=== PATIENT | female | born 1980 | race Caucasian/White ===

== ENCOUNTER 2017-12-28 21:30 | Emergency (ER) | payer BC ==
[2017-12-28 21:39] VITALS: BP 150/89; PULSE 73; RESP 18; TEMP 97.9
--- NOTE | 2017-12-28 22:08 | XR ---
EXAMINATION TYPE: XR knee complete LT DATE OF EXAM: 12/28/2017 COMPARISON: NONE HISTORY: Knee pain TECHNIQUE: 3 views FINDINGS: There is some spurring of the femoral and tibial condyles. I see no fracture nor dislocatio n. There is no sign of joint effusion. IMPRESSION: Mild osteoarthritis. No fracture.
--- NOTE | 2017-12-28 22:29 | ED ---
General Adult HPI - General Chief complaint: Extremity Injury, Lower Stated complaint: Knee Injury Time Seen by Provider: 12/28/17 21:43 Source: patient, RN notes reviewed Mode of arrival: ambulatory Limitations: no limitations - History of Present Illness Initial comments: 37-year-old female presents to the emergency department for a chief complaint of left knee pain times one day. Earlier today patient was walking when she tripped over her son's toy and fell onto her left knee. Patient states she believes she twisted her left knee. Patient describes the pain as a aching pain and rates the pain at a 6 out of 10. Patient states keeping off the knee helps with the pain and standing on the knee makes the pain worse. Patient states she is able to ambulate although it is somewhat painful. Patient has been trying Aleve for pain. She has not iced it yet. Patient denies any other injuries in the fall. Patient denies hitting her head.Patient has no other complaints at this time including shortness of breath, chest pain, abdominal pain, nausea or vomiting, headache, or visual changes. - Related Data Allergies Allergy/AdvReac Type Severity Reaction Status Date / Time Sulfa (Sulfonamide Allergy Unknown Verified 12/28/17 21:37 Antibiotics) Review of Systems ROS Statement: Those systems with pertinent positive or pertinent negative responses have been documented in the HPI. ROS Other: All systems not noted in ROS Statement are negative. Past Medical History Past Medical History: No Reported History History of Any Multi-Drug Resistant Organisms: None Reported Past Surgical History: Section Past Psychological History: Anxiety, Depression Smoking Status: Never smoker Past Alcohol Use History: Occasional Past Drug Use History: None Reported General Exam Limitations: no limitations General appearance: alert, in no apparent distress Head exam: Present: atraumatic, normocephalic, normal inspection Eye exam: Present: normal appearance. Absent: scleral icterus, conjunctival injection ENT exam: Present: normal exam, mucous membranes moist Neck exam: Present: normal inspection, full ROM. Absent: tenderness, meningismus, lymphadenopathy Respiratory exam: Present: normal lung sounds bilaterally. Absent: respiratory distress, wheezes, rales, rhonchi, stridor Cardiovascular Exam: Present: regular rate, normal rhythm, normal heart sounds. Absent: systolic murmur, diastolic murmur, rubs, gallop, clicks Extremities exam: Present: tenderness (Tenderness to the medial aspect of the left knee. No patellar tenderness. No tenderness of the lateral aspect of the left knee or posterior to the left knee), normal capillary refill (Refill less than 2 seconds and pedal pulse 2+ in the left lower extremity), other (Patient is able to ambulate in the emergency department.). Absent: full ROM (Patient has 90 flexion of the left knee, full extension.), pedal edema, joint swelling (No swelling or ecchymosis noted of the left knee. No erythema or increased warmth of the left knee. No evidence of infection.), calf tenderness (No calf tenderness, erythema, swelling, or increased warmth. Negative Homans sign) Back exam: Absent: tenderness Neurological exam: Present: alert, oriented X3, CN II-XII intact Psychiatric exam: Present: normal affect (Patient is pleasant and interactive. She is cooperative and answering questions without difficulty.), normal mood Course Vital Signs 12/28/17 21:37 Temperature 97.9 F Pulse Rate 73 Respiratory 18 Rate Blood Pressure 150/89 O2 Sat by Pulse 100 Oximetry Medical Decision Making - Medical Decision Making 37-year-old female presents to the emergency department for a chief complaint of left knee pain times one day. Patient tripped over her son's toy and fell on her left knee. She thinks she twisted it. Patient denies pain in the left hip or left foot or ankle. On exam patient is alert and pleasant. She is interactive and answering questions. She is able to ambulate on the left knee. Patient has mild tenderness to the medial aspect of the left knee. No lateral tenderness or tenderness over the patella. No tenderness in the posterior knee. No calf tenderness. Neurovascular intact in the left lower extremity with about 90 flexion and full extension of the left knee. Patient denies any other injuries in the fall and did not hit her head. X-ray shows no fracture or dislocation in the left knee. There is mild osteoarthritis. Patient was wrapped with an Aquiles wrap. She was educated on rice therapy. She will take Motrin and Tylenol for pain. She will follow-up with primary care in 1-2 days. She will also follow up with orthopedics as this could be a meniscal or ligamentous injury. Patient aware she may need repeat x-rays in 7-10 days if symptoms do not resolve. Patient aware to return to the emergency Department if she has any worsening symptoms. Disposition Clinical Impression: Knee pain, left Disposition: HOME SELF-CARE Condition: Good Instructions: Knee Pain (ED) Additional Instructions: Use Aquiles wrap as needed for comfort. Rest ice and elevate the left knee. Take Motrin and Tylenol for pain. Please follow up with orthopedics in one to 2 days. Return to the emergency department if you have any worsening symptoms. Is patient prescribed a controlled substance at d/c from ED?: No Referrals: Trav Lezama DO [Primary Care Provider] - 1-2 days Gideon Kelsey MD [STAFF PHYSICIAN] - 1-2 days Time of Disposition: 22:29
== END 2017-12-28 22:35 | disposition home or self-care (01) ==
LOC: EC 21:30
DX: M25.562 Pain in left knee (principal); M17.12 Unilateral primary osteoarthritis, left knee; Z88.2 Allergy status to sulfonamides; W01.0XXA Fall on same level from slipping, tripping and stumbling without subsequent striking against object, initial encounter; Y93.01 Activity, walking, marching and hiking; Y92.009 Unspecified place in unspecified non-institutional (private) residence as the place of occurrence of the external cause
CPT/HCPCS: 99283

== ENCOUNTER 2018-03-04 12:27 | Emergency (ER) | payer BC ==
[2018-03-04 12:33] VITALS: BP 114/67; PULSE 84; RESP 18; TEMP 98.1
[2018-03-04] MEDS ORDERED: KETOROLAC 60 MG/2 ML VIAL IM STA (12:57)
[2018-03-04] MEDS ORDERED: LIDOCAINE 5% PATCH TOPICAL STA (12:57)
--- NOTE | 2018-03-04 13:42 | ED ---
General Adult HPI - General Chief complaint: Back Pain/Injury Stated complaint: Back pain Time Seen by Provider: 03/04/18 12:43 Source: patient, RN notes reviewed Mode of arrival: ambulatory Limitations: no limitations - History of Present Illness Initial comments: Patient 37-year-old female presents emergency room today with multiple complaints. Patient does admit that she's noticed a bump to the left hand over the last 3 months. Also admits that she's been having some lower back pain on the left side over the last few years. Patient states that no injury or trauma to her back. She is bothered or bleeding after 4 years ago. Patient does admit the pain is worse with certain movements of bending, turning, twisting. Patient does not that she feels pain into the right hip. Denies any saddle anesthesia. Denies any bowel or bladder incontinence retention. Patient does admit to some pain to the back of the left hand with movements of this pump. Skin denies any trauma to this area. Denies any other complaints currently. States she's been using approximately a little relief the symptoms. Patient denies any recent fever, chills, shortness of breath, chest pain, nausea or vomiting, numbness or tingling, headaches or visual changes, or any other complaints. - Related Data Previous Rx's Medication Instructions Recorded Cyclobenzaprine [Flexeril] 10 mg PO TID #20 tab 03/04/18 Dexamethasone 0.75 mg PO DIRECTED #12 tablet 03/04/18 Lidocaine [Lidoderm 5% Patch] 1 patch TRANSDERM DAILY #7 patch 03/04/18 Naproxen [Naprosyn] 500 mg PO BID #20 tablet 03/04/18 Allergies Allergy/AdvReac Type Severity Reaction Status Date / Time Sulfa (Sulfonamide Allergy Unknown Verified 03/04/18 12:30 Antibiotics) Review of Systems ROS Statement: Those systems with pertinent positive or pertinent negative responses have been documented in the HPI. ROS Other: All systems not noted in ROS Statement are negative. Past Medical History Past Medical History: No Reported History Additional Past Medical History / Comment(s): back pain History of Any Multi-Drug Resistant Organisms: None Reported Past Surgical History: Section Past Psychological History: Anxiety, Depression Smoking Status: Never smoker Past Alcohol Use History: Occasional Past Drug Use History: None Reported General Exam - General Exam Comments Initial Comments: General: The patient is awake and alert, in no distress, and does not appear acutely ill. Eye: There is normal conjunctiva bilaterally. No signs of icterus. Ears, nose, mouth and throat: There are moist mucous membranes and no oral lesions. Neck: The neck is supple. Cardiovascular: There is a regular rate and rhythm. No murmur, rub or gallop is appreciated. Respiratory: Lungs are clear to auscultation, respirations are non-labored, breath sounds are equal. No wheezes, stridor, rales, or rhonchi. Musculoskeletal: Normal ROM. Normal appearance of thoracic and lumbar spine with no step-off deformity. No tenderness midline over the spinous processes. Patient does have paravertebral tenderness lower lumbar on the left side. Patient does have backing ounces of the back and left hand.. Sensation intact. Strength 5/5. Pulses equal bilaterally 2+. Neurological: A&O x 3. CN II-XII intact, There are no obvious motor or sensory deficits. Coordination appears grossly intact. Speech is normal. Skin: Skin is warm and dry and no rashes or lesions are noted. Psychiatric: Cooperative, appropriate mood & affect, normal judgment. Limitations: no limitations Course Vital Signs 03/04/18 12:30 Temperature 98.1 F Pulse Rate 84 Respiratory 18 Rate Blood Pressure 114/67 O2 Sat by Pulse 96 Oximetry Medical Decision Making - Medical Decision Making Patient's x-ray reviewed does show spondylolisthesis in his anterior listhesis of L5-S1. Results were discussed with the patient. She'll be continued on anti -inflammatories, Lidoderm patch, muscle relaxer, and also given a prescription for steroids to use if other medications are not helping her symptoms. Patient is advised to follow-up the family physician also orthopedics for these symptoms. Was discussed that the bump to the back of her left hand is consistent with a ganglion cyst and follow-up with orthopedics as well. Patient advised return if any symptoms increase or worsen or for any other concerns. Disposition Clinical Impression: Acute exacerbation of chronic low back pain, Ganglion cyst Disposition: HOME SELF-CARE Condition: Good Instructions: Acute Low Back Pain (ED) Additional Instructions: Please use medication as discussed. Please follow-up with orthopedic/family doctor in the next 2 days. Please return to emergency room if the symptoms increase or worsen or for any other concerns. Prescriptions: Cyclobenzaprine [Flexeril] 10 mg PO TID #20 tab Dexamethasone 0.75 mg PO DIRECTED #12 tablet Lidocaine [Lidoderm 5% Patch] 1 patch TRANSDERM DAILY #7 patch Naproxen [Naprosyn] 500 mg PO BID #20 tablet Is patient prescribed a controlled substance at d/c from ED?: No Referrals: Trav Lezama DO [Primary Care Provider] - 1-2 days Gideon Kelsey MD [STAFF PHYSICIAN] - 1-2 days Time of Disposition: 14:16
--- NOTE | 2018-03-04 13:48 | XR ---
EXAMINATION TYPE: XR lumbar spine 2 or 3V DATE OF EXAM: 03/04/2018 CLINICAL HISTORY: pain TECHNIQUE: Three views of the lumbar spine are submitted. COMPARISON: None. FINDINGS: There is grade 2 anterolisthesis of L5 on S1 of 1 cm. 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 Ve rtebral body heights are within normal limits. Disc spaces are within normal limits. The overlying soft tissue appears unremarkable. IMPRESSION: There is grade 2 anterolisthesis of L5 on S1 of 1 cm. 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
== END 2018-03-04 14:22 | disposition home or self-care (01) ==
LOC: EC 12:27
DX: M54.5 Low back pain (principal); G89.29 Other chronic pain; M67.442 Ganglion, left hand; M43.17 Spondylolisthesis, lumbosacral region; Z88.2 Allergy status to sulfonamides
CPT/HCPCS: 72100; 99283; 96372; J1885